=== PATIENT | male | born 1980 | race Caucasian/White ===

== ENCOUNTER 2017-02-14 06:29 | Inpatient (IN) | payer MEDICARE ==
[~2017-02-14] VITALS: Ht 190.5 cm; Wt 100.0 kg
[2017-02-14] VITALS (9 sets, daily range): BP systolic 110–170; BP diastolic 62–102; PULSE 60–94; RESP 16–19; TEMP 97.3–99; O2SAT 93–99
[2017-02-14] MEDS ORDERED: XARE20TA PO (07:03)
[2017-02-14 07:44] LABS: AUTOMATED NEUTROPHIL # 3.3 TH/MM3 (1.8-7.7); BASOPHIL % 0.4 % (0.0-2.0); EOSINOPHIL % 0.7 % (0.0-4.0); HEMATOCRIT 39.8 % (39.0-51.0); HEMO FLAGS DIFF FINAL; LYMPH % 19.2 % (9.0-44.0); MEAN CELL VOLUME 84.5 FL (80.0-100.0); MEAN CORPUSCULAR HEMOGLOBIN 28.9 PG (27.0-34.0); MEAN CORPUSCULAR HGB CONC 34.3 % (32.0-36.0); MONO % 17.3 % (0.0-8.0); NEUT % 62.4 % (16.0-70.0); PLATELET COUNT 102 TH/MM3 (150-450); RED BLOOD COUNT 4.71 MIL/MM3 (4.50-5.90); RED CELL DISTRIBUTION WIDTH 17.1 % (11.6-17.2); WHITE BLOOD COUNT 5.3 TH/MM3 (4.0-11.0)
[2017-02-14] MEDS ORDERED: SODIUM CHLORID 0.9% 500 ML INJ 500 ML IV ONE (08:00)
[2017-02-14] MEDS ORDERED: KETOROLAC TROMETHAMINE 30 MG/ML (IVP) VIAL IV PUSH ONE (08:00)
[2017-02-14 08:01] LABS: ALT (GPT) 46 U/L (12-78); ANION GAP 7 MEQ/L (5-15); AST (GOT) 37 U/L (15-37); BICARBONATE 26.1 MEQ/L (21.0-32.0); BLOOD UREA NITROGEN 10 MG/DL (7-18); CHLORIDE 104 MEQ/L (98-107); GLOMERULAR FILTRATION RATE 80 ML/MIN (>89); POTASSIUM 3.7 MEQ/L (3.5-5.1); SODIUM (NA) 137 MEQ/L (136-145)
[2017-02-14 08:03] LABS: ALKALINE PHOSPHATASE 46 U/L (45-117); TOTAL BILIRUBIN ADULT 1.2 MG/DL (0.2-1.0)
--- NOTE | 2017-02-14 08:17 | RADRPT ---
EXAM DATE/TIME: 02/14/2017 08:01 [facility] COMPARISON: No previous studies available for comparison. INDICATIONS : Shortness of breath. MEDICAL HISTORY : None. SURGICAL HISTORY : None. ENCOUNTER: Initial ACUITY: 1 day PAIN SCORE: 0/10 LOCATION: Bilateral chest FINDINGS: PA and lateral views of the chest demonstrate the lungs to be symmetrically aerated without evidence of mass, infiltrate or effusion. The cardiomediastinal contours are unremarkable. Osseous structure s are intact. CONCLUSION: No acute disease. Stephane Lowry MD on February 14, 2017 at 8:15 Board Certified Radiologist. This report was verified electronically.
--- NOTE | 2017-02-14 09:23 | RADRPT ---
EXAM DATE/TIME: 02/14/2017 08:51 [facility] COMPARISON: No previous studies available for comparison. INDICATIONS : Right leg pain and swelling. MEDICAL HISTORY : Osteomyelitis. Deep venous thrombosis. SURGICAL HISTORY : Multiple right leg surgeries. ENCOUNTER: Initial ACUITY: 1 week PAIN SCORE: 5/10 LOCATION: Right leg. TECHNIQUE: Venous ultrasound of the leg was performed from the inguinal ligament to the proximal calf. Real-arun e, color Doppler and spectral tracing, compression and augmentation techniques were used. FINDINGS: There is nonocclusive thrombus in the right popliteal vein. There is occlusive thrombus in the right posterior tibial vein. The remaining structures of the right lower extremity are patent. CONCLUSION: Nonocclusive thrombus in the right popliteal vein and occlusive thrombus in the right tibial vein. Stephane Lowry MD on February 14, 2017 at 9:20 Board Certified Radiologist. This report was verified electronically.
[2017-02-14] MEDS ORDERED: MORPHINE SULFATE 4 MG/ML INJ IV PUSH ONE (10:15)
[2017-02-14] MEDS ORDERED: ENOXAPARIN SODIUM 100 MG/ML SYRINGE SQ ONE (10:15)
--- NOTE | 2017-02-14 10:31 | PD ---
HPI Chief Complaint: Fever Time Seen by Provider: 07:30 Travel History International Travel<30 days: No Contact w/Intl Traveler<30days: No Traveled to known affect area: No History of Present Illness HPI Patient is a 36 year old male with history of DVT on Xarelto, who comes in complaining of pain and swelling to his right leg. He says it started this morning. He also noted some redness to his right leg. He says someone told him he had a fever, but he has not had a documented elevated temperature. He says he traveled here from [place] a few weeks ago by car. He does complain of some SOB that started this morning. He denies any chest pain. He has history of osteomyelitis after a fracture to the leg several years ago. [facility] Past Medical History Diminished Hearing: No Deep Vein Thrombosis: Yes Tetanus Vaccination: Unknown Influenza Vaccination: No ?: Not Social History Alcohol Use: No Tobacco Use: Yes (1 ppd) Substance Use: No Allergies-Medications (Allergen,Severity, Reaction): Coded Allergies: No Known Allergies (Verified , 02/14/17) Reported Meds & Prescriptions Reported Meds & Active Scripts Active Reported Xarelto (Rivaroxaban) 20 Mg Tab 20 Mg PO DAILY Review of Systems Except as stated in HPI: all other systems reviewed are Neg General / Constitutional: Positive: Fever HENT: No: Headaches Cardiovascular: No: Chest Pain or Discomfort Respiratory: Positive: Shortness of Breath Gastrointestinal: No: Nausea, Vomiting Musculoskeletal: Positive: Edema, Pain Skin: Positive Change in Pigmentation Neurologic: No: Weakness, Dizziness Physical Exam Narrative GENERAL: Awake and alert, in no acute distress. SKIN: Focused skin assessment warm/dry. Mild erythema just above the right ankle. HEAD: Atraumatic. Normocephalic. EYES: Pupils equal and round. No scleral icterus. ENT: Mucous membranes pink and moist. NECK: Trachea midline. No JVD. CARDIOVASCULAR: Regular rate and rhythm. No murmur appreciated. RESPIRATORY: No accessory muscle use. Clear to auscultation. Breath sounds equal bilaterally. MUSCULOSKELETAL: No obvious deformities. No clubbing. No cyanosis. 1+ edema of the right leg. Tenderness to palpation of the right calf. NEUROLOGICAL: Awake and alert. No obvious cranial nerve deficits. Motor grossly within normal limits. Normal speech. PSYCHIATRIC: Appropriate mood and affect; insight and judgment normal. Data Data Last Documented VS Vital Signs Date Time Temp Pulse Resp B/P Pulse Ox O2 Delivery O2 Flow Rate FiO2 02/14/17 11:10 78 18 113/67 96 Room Air 02/14/17 10:40 98.2 Orders Complete Blood Count With Diff (02/14/17 07:04) Comprehensive Metabolic Panel (02/14/17 07:04) Lactic Acid Sepsis Protocol (02/14/17 07:04) Blood Culture (02/14/17 07:04) Iv Access Insert/Monitor (02/14/17 07:04) Oxygen Administration (02/14/17 07:04) Oximetry (02/14/17 07:04) Blood Glucose (02/14/17 07:04) Us Leg Venous Doppler (02/14/17 ) Chest, Pa & Lat (02/14/17 ) Sodium Chlorid 0.9% 500 Ml Inj (Ns 500 M (02/14/17 08:00) Ketorolac Inj (Toradol Inj) (02/14/17 08:00) Act Partial Throm Time (Ptt) (02/14/17 10:03) Prothrombin Time / Inr (Pt) (02/14/17 10:03) Morphine Inj (Morphine Inj) (02/14/17 10:15) Enoxaparin Inj (Lovenox Inj) (02/14/17 10:15) Ct Pulmonary Angiogram (02/14/17 10:16) Iohexol 350 Inj (Omnipaque 350 Inj) (02/14/17 11:03) Admit To Inpatient (02/14/17 ) Vital Signs (Adult) Q4H (02/14/17 12:24) Activity Oob With Assistance (02/14/17 12:24) Diet Regular Basic (02/14/17 Lunch) Sodium Chloride 0.9% Flush (Ns Flush) (02/14/17 12:30) Sodium Chloride 0.9% Flush (Ns Flush) (02/14/17 21:00) Acetaminophen (Tylenol) (02/14/17 12:30) Ondansetron Inj (Zofran Inj) (02/14/17 12:30) Docusate Sodium (Colace) (02/14/17 12:30) Magnesium Hydroxide Liq (Milk Of Magnesi (02/14/17 12:30) Basic Metabolic Panel (Bmp) (02/15/17 06:00) Comprehensive Metabolic Panel (02/15/17 06:00) Resp Oxygen [place] C Titrat 1-4 L (02/14/17 ) Case Management Consult (02/14/17 12:24) Zolpidem (Ambien) (02/14/17 12:30) Inpatient Certification (02/14/17 ) Consult Medical Oncology (02/14/17 ) Metoprolol Tartrate (Lopressor) (02/14/17 12:30) Acetamin-Hydrocod 325-5 Mg (Amboy 5-325 (02/14/17 12:30) Enoxaparin Inj (Lovenox Inj) (02/14/17 21:00) Pill Splitter (Pill Splitter) (02/14/17 12:45) Resp Incentive Spirometry (02/14/17 ) Admit Order (Ed Use Only) (02/14/17 ) Labs Laboratory Tests Test 02/14/17 02/14/17 07:20 10:09 White Blood Count 5.3 TH/MM3 Red Blood Count 4.71 MIL/MM3 Hemoglobin 13.6 GM/DL Hematocrit 39.8 % Mean Corpuscular Volume 84.5 FL Mean Corpuscular Hemoglobin 28.9 PG Mean Corpuscular Hemoglobin 34.3 % Concent Red Cell Distribution Width 17.1 % Platelet Count 102 TH/MM3 Mean Platelet Volume 9.2 FL Neutrophils (%) (Auto) 62.4 % Lymphocytes (%) (Auto) 19.2 % Monocytes (%) (Auto) 17.3 % Eosinophils (%) (Auto) 0.7 % Basophils (%) (Auto) 0.4 % Neutrophils # (Auto) 3.3 TH/MM3 Lymphocytes # (Auto) 1.0 TH/MM3 Monocytes # (Auto) 0.9 TH/MM3 Eosinophils # (Auto) 0.0 TH/MM3 Basophils # (Auto) 0.0 TH/MM3 CBC Comment DIFF FINAL Differential Comment Sodium Level 137 MEQ/L Potassium Level 3.7 MEQ/L Chloride Level 104 MEQ/L Carbon Dioxide Level 26.1 MEQ/L Anion Gap 7 MEQ/L Blood Urea Nitrogen 10 MG/DL Creatinine 1.04 MG/DL Estimat Glomerular Filtration 80 ML/MIN Rate Random Glucose 106 MG/DL Lactic Acid Level 0.8 mmol/L Calcium Level 9.0 MG/DL Total Bilirubin 1.2 MG/DL Aspartate Amino Transf 37 U/L (AST/SGOT) Alanine Aminotransferase 46 U/L (ALT/SGPT) Alkaline Phosphatase 46 U/L Total Protein 7.9 GM/DL Albumin 4.0 GM/DL Prothrombin Time 12.6 SEC Prothromb Time International 1.1 RATIO Ratio Activated Partial 30.7 SEC Thromboplast Time MDM Medical Decision Making Medical Screen Exam Complete: Yes Emergency Medical Condition: Yes Medical Record Reviewed: Yes Differential Diagnosis DVT vs cellulitis vs muscle strain Narrative Course Patient is a 28-year-old male who comes in complaining of right leg pain and swelling. There is edema and slight redness to the right lower extremity on exam. IV established, labs sent. Labs show no acute abnormalities. Doppler ultrasound is positive for DVT in the right leg. CTA performed to rule out PE, shows no acute abnormalities. Patient given Lovenox. Admitted due to failed outpatient therapy. Diagnosis Primary Impression: DVT (deep venous thrombosis) Qualified Code: I82.4Y1 - Acute deep vein thrombosis (DVT) of proximal vein of right lower extremity Admitting Information Admitting Physician Requests: Admit Condition: Stable Daxa Fernandez MD Feb 14, 2017 10:30
[2017-02-14 10:32] LABS: APTT (PATIENT) 30.7 SEC (24.3-30.1); INTERNATIONAL NORMALIZED RATIO 1.1 RATIO; PROTHROMBIN TIME - PATIENT 12.6 SEC (9.8-11.6)
[2017-02-14] MEDS ORDERED: IOHEXOL 350 MG/ML 10 ML VIAL (for RAD DIAG) IV ONE (11:03)
--- NOTE | 2017-02-14 11:24 | RADRPT ---
EXAM DATE/TIME: 02/14/2017 10:38 [facility] COMPARISON: No previous studies available for comparison. INDICATIONS : Right lower leg pain and shortness of breath today. IV CONTRAST: 70 cc Omnipaque 350 (iohexol) IV RADIATION DOSE: 13.71 CTDIvol (mGy) MEDICAL HISTORY : deep vein thrombosis SURGICAL HISTORY : None. ENCOUNTER: Initial ACUITY: 1 day PAIN SCALE: 0/10 LOCATION: Bilateral chest TECHNIQUE: Volumetric scanning of the chest was performed using a pulmonary embolism protocol MIP images were re constructed. Using automated exposure control and adjustment of the mA and/or kV according to patien t size, radiation dose was kept as low as reasonably achievable to obtain optimal diagnostic quality images. FINDINGS: PULMONARY ARTERIES: No filling defects are seen in the pulmonary arteries through the segmental level. LUNGS: There is increased density at the posterior lower lobes bilaterally being more prominent on the right area PLEURAE: There is no pleural thickening or pleural effusion. MEDIASTINUM: There is good visualization of the great vessels of the middle mediastinum. No evidence of mediastin al or hilar adenopathy/mass. Coronary artery calcifications appear present. MUSCULOSKELETAL: Within normal limits for patient age. MISCELLANEOUS: The visualized upper abdominal organs demonstrate no acute abnormality. CONCLUSION: 1. No pulmonary embolus. 2. Mild atelectasis or consolidation at the posterior lower lobes bilaterally being more prominent on the right. 3. Coronary artery calcifications are present. Stephane Lowry MD on February 14, 2017 at 11:21 Board Certified Radiologist. This report was verified electronically.
[2017-02-14] MEDS ORDERED: ZOLPIDEM TARTRATE 5 MG TAB PO PRN (12:30)
[2017-02-14] MEDS ORDERED: ONDANSETRON HCL 4 MG/2 ML VIAL IVP PRN (12:30)
[2017-02-14] MEDS ORDERED: ACETAMINOPHEN/HYDROcodone 325 MG/5 MG TAB PO PRN (12:30)
[2017-02-14] MEDS ORDERED: ACETAMINOPHEN 325 MG TAB PO PRN (12:30)
[2017-02-14] MEDS ORDERED: METOPROLOL TARTRATE 25 MG TAB PO PRN (12:30)
[2017-02-14] MEDS ORDERED: MAGNESIUM HYDROXIDE SUSP 30 ML CUP PO PRN (12:30)
[2017-02-14] MEDS ORDERED: SODIUM CHLORIDE 0.9% FLUSH 10 ML FLUSH IV FLUSH PRN (12:30)
[2017-02-14] MEDS: DOCUSATE SODIUM 100 MG CAP PO SCH (12:30)
[2017-02-14] MEDS ORDERED: PILL SPLITTER OTHER PRN (12:45)
[2017-02-14] MEDS: RESP: ALBUTEROL 2.5 MG/IPRATROPIUM 0.5 MG NEB (SCH) NEB (14:00)
[2017-02-14] MEDS ORDERED: RESP: ALBUTEROL 2.5 MG/IPRATROPIUM 0.5 MG NEB (PRN) NEB (14:00)
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
[2017-02-14] MEDS ORDERED: LEVOFLOXACIN 750 MG PREMIX INJ 150 ML IV SCH (15:00)
[2017-02-14] MEDS: NICOTINE 14 MG/24 HR PATCH T-DERMAL SCH (15:00)
[2017-02-14] MEDS: predniSONE 20 MG TAB PO SCH (15:02)
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
[2017-02-14] MEDS ORDERED: WARFARIN SOD 4 MG TAB PO SCH (16:00)
[2017-02-14] MEDS ORDERED: HYDROmorphone HCL PF 1 MG/ML VIAL IV ONE (19:00)
[2017-02-14] MEDS: ENOXAPARIN SODIUM 100 MG/ML SYRINGE SQ SCH (20:52)
[2017-02-14] MEDS: SODIUM CHLORIDE 0.9% FLUSH 10 ML FLUSH IV FLUSH SCH (20:53)
[2017-02-14] MEDS ORDERED: ZANA4CAP PO (22:56)
[2017-02-14] MEDS ORDERED: NEUR800T PO (22:56)
[2017-02-14] MEDS ORDERED: OXYC15TA PO (22:56)
[2017-02-14] MEDS ORDERED: BUSP15TA PO (22:56)
[2017-02-15] VITALS: BP 116/73; PULSE 82; RESP 17; TEMP 97.3; O2SAT 95
[2017-02-15] MEDS: DOCUSATE SODIUM 100 MG CAP PO SCH ×2 (00:30→10:39)
[2017-02-15 04:00] VITALS: BP 126/75; PULSE 88; RESP 18; TEMP 97.6; O2SAT 99
--- NOTE | 2017-02-15 07:13 | HHI.PR ---
Subjective Remarks Feels much better. No more sweating. no cough, no sob. He complaints of leg pain and he is also having chronic back pain. No n/v/d/c. Objective Vitals Vital Signs Date Time Temp Pulse Resp B/P Pulse Ox O2 Delivery O2 Flow Rate FiO2 02/15/17 06:24 18 02/15/17 05:24 18 02/15/17 00:00 97.3 82 17 116/73 95 02/14/17 20:00 98.2 86 17 119/69 95 02/14/17 19:30 18 02/14/17 16:00 97.3 92 16 110/72 99 02/14/17 15:08 98.0 60 17 119/64 96 Room Air 02/14/17 14:46 16 02/14/17 13:31 71 17 117/62 96 Room Air 02/14/17 11:10 78 18 113/67 96 Room Air 02/14/17 11:10 17 02/14/17 10:40 98.2 88 19 141/102 95 Room Air 02/14/17 09:23 18 02/14/17 08:30 98.6 83 18 170/91 96 Room Air I/O 02/14/17 02/14/17 02/14/17 02/15/17 02/15/17 02/15/17 07:00 15:00 23:00 07:00 15:00 23:00 Intake Total 960 ml Output Total 700 ml Balance 260 ml Intake Oral 960 ml Output Urine Total 700 ml # Voids 0 # Bowel Movements 0 Result Diagram: 02/14/17 0720 02/14/17 [address] Angiography 02/14/17 1016 Signed Impressions: Service Date/Time: Tuesday, February 14, 2017 10:38 - CONCLUSION: 1. No pulmonary embolus. 2. Mild atelectasis or consolidation at the posterior lower lobes bilaterally being more prominent on the right. 3. Coronary artery calcifications are present. Stephane Lowry MD Lower Extremity Ultrasound 02/14/17 0000 Signed Impressions: Service Date/Time: Tuesday, February 14, 2017 08:51 - CONCLUSION: Nonocclusive thrombus in the right popliteal vein and occlusive thrombus in the right tibial vein. Stephane Lowry MD Chest X-Ray 02/14/17 0000 Signed Impressions: Service Date/Time: Tuesday, February 14, 2017 08:01 - CONCLUSION: No acute disease. Stephane Lowry MD Objective Remarks GENERAL: Well-developed well-nourished. In no acute distress. SKIN: Warm and dry. Erythema around the right ankle. HEENT: Normocephalic. Pupils equal and round. Mucous membranes pink and moist. CARDIOVASCULAR: Regular rate and rhythm. No murmur appreciated. RESPIRATORY: No accessory muscle use. Bronchial breath sounds in bilateral lung bases. Bibasilar crackles. No wheezing. GASTROINTESTINAL: Abdomen soft, non-tender, nondistended. Bowel sounds x4. MUSCULOSKELETAL: Right lower extremity with swelling, edema, erythema, tender to touch, previous surgical deformities over the right tibia. Left lower extremity unremarkable. NEUROLOGICAL: Awake and alert. No focal neurological deficits. Moves upper and lower extremities spontaneously. Normal speech. PSYCHIATRIC: Appropriate mood and affect; insight and judgment normal. 36-year-old male with a past medical history of posttraumatic DVT who presented with right leg pain and swelling as well as shortness of breath Right lower extremity DVT, failed management with Xarelto: Reviewed RLE doppler , shows nonocclusive thrombus in the right popliteal vein and occlusive thrombus in the right tibial vein. Had been taking Xarelto as outpatient, previously on Coumadin. Patient did take a long car trip 4-5 days prior to admission. He does continue to smoke. Discussed with hematology, stop Xarelto , continue Lovenox bridge and transition back to Coumadin. Pain control with oral [place]. Community acquired pneumonia: Pulmonary angiogram reviewed, showed no PE, however it did show atelectasis and consolidation in the posterior lower lung bases. Start IV Levaquin or prednisone daily.. Scheduled and as needed nebs. O2 as needed. Provide tobacco cessation education. Nicotine patch. Incentive spirometry. Discussed Condition With Patient, nurse, family at bedside A/P Assessment and Plan 36-year-old male with a past medical history of posttraumatic DVT who presented with right leg pain and swelling as well as shortness of breath Right lower extremity DVT, failed management with Xarelto: Reviewed RLE doppler , shows nonocclusive thrombus in the right popliteal vein and occlusive thrombus in the right tibial vein. Had been taking Xarelto as outpatient, previously on Coumadin. Patient did take a long car trip 4-5 days prior to admission. He does continue to smoke. Discussed with hematology, stop Xarelto , continue Lovenox bridge and transition back to Coumadin. Pain control with oral [place]. Discussed with Dr Nick hem/onc [place] to DC patient will have lovenox and coumadin 7.5 mg po daily until INR is back to goal 2-3. Patient to follow up in the clinic to check INR per Dr Nick. Discussed with the patient and he feels comfortable with the plan. Community acquired pneumonia: Pulmonary angiogram reviewed, showed no PE, however it did show atelectasis and consolidation in the posterior lower lung bases. Patient is much better today. No cough , diaphoresis. DC IV Levaquin and prednisone daily.. Scheduled and as needed nebs. O2 as needed. Provide tobacco cessation education. Nicotine patch. Incentive spirometry. Chronic back pain: He also complaints of pain in his leg. Patient says is on oxycodone and is following with pain specialit as OP. Says he did run out of pain meds. Will give oxycodone at discharge 5 mg as need (10 pills). Patient to follow with pain management Discussed Condition With Patient, nurse, family at bedside Improved patient to have lovenox until INR at therapeutic goal of 2-3. Will cont coumadin 7.5 mg daily , to follow up as OP with hem/onc service who will manage INR Rach Bernard MD Feb 15, 2017 07:13
[2017-02-15 08:00] VITALS: BP 138/89; PULSE 74; RESP 16; TEMP 97.4; O2SAT 96
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
[2017-02-15] MEDS ORDERED: WARF-21 PO (08:05)
[2017-02-15] MEDS ORDERED: ENOX100P SQ (08:05)
[2017-02-15] MEDS ORDERED: REMOVE OLD PATCH T-DERMAL SCH (09:00)
[2017-02-15] MEDS: RESP: ALBUTEROL 2.5 MG/IPRATROPIUM 0.5 MG NEB (SCH) NEB (09:14)
[2017-02-15 09:33] LABS: INTERNATIONAL NORMALIZED RATIO 1.1 RATIO; PROTHROMBIN TIME - PATIENT 12.6 SEC (9.8-11.6)
[2017-02-15] MEDS ORDERED: OXYC1CAP PO (09:43)
[2017-02-15] MEDS: NICOTINE 14 MG/24 HR PATCH T-DERMAL SCH (09:53)
[2017-02-15] MEDS: ENOXAPARIN SODIUM 100 MG/ML SYRINGE SQ SCH (09:54)
[2017-02-15] MEDS: predniSONE 20 MG TAB PO SCH (09:54)
[2017-02-15] MEDS: SODIUM CHLORIDE 0.9% FLUSH 10 ML FLUSH IV FLUSH SCH (09:54)
[2017-02-15 10:16] LABS: ALKALINE PHOSPHATASE 44 U/L (45-117); ALT (GPT) 44 U/L (12-78); ANION GAP 7 MEQ/L (5-15); AST (GOT) 29 U/L (15-37); BICARBONATE 27.9 MEQ/L (21.0-32.0); BLOOD UREA NITROGEN 11 MG/DL (7-18); CHLORIDE 104 MEQ/L (98-107); GLOMERULAR FILTRATION RATE 102 ML/MIN (>89); POTASSIUM 3.5 MEQ/L (3.5-5.1); SODIUM (NA) 139 MEQ/L (136-145); TOTAL BILIRUBIN ADULT 0.6 MG/DL (0.2-1.0)
== END 2017-02-15 12:46 | disposition home or self-care (01) | DRG 299 ==
LOC: NEPE 06:29 → NEDA 12:39 → HOCB 15:43
PROVIDERS: ADMIT Hospitalist; ATTEND Hospitalist
DX: I82.401 Acute embolism and thrombosis of unspecified deep veins of right lower extremity (principal); J18.9 Pneumonia, unspecified organism; F17.210 Nicotine dependence, cigarettes, uncomplicated; Z79.02 Long term (current) use of antithrombotics/antiplatelets; G89.29 Other chronic pain; M54.9 Dorsalgia, unspecified; Z86.718 Personal history of other venous thrombosis and embolism
CPT/HCPCS: 71020; 71275; 80053; 83605; 85025; 85610; 85730; 87040; 93971; 94150; 96361; 96372; 96374; 96375; J1170; J1650; J1885; J1956; J2270; J7040; J7512; Q9967

== ENCOUNTER 2017-02-25 02:09 | Observation (INO) | payer MEDICARE ==
[~2017-02-25] VITALS: Ht 190.5 cm; Wt 105.0 kg
[~2017-02-25 02:09] MED LIST: BUSP15TA PO; ENOX100P SQ; NEUR800T PO; OXYC15TA PO; OXYC1CAP PO; WARF-21 PO; ZANA4CAP PO
[2017-02-25 02:12] VITALS: BP 126/81; PULSE 120; RESP 22; O2SAT 93
[2017-02-25] MEDS ORDERED: SODIUM CHLOR 0.9% 1000 ML INJ 1,000 ML IV SCH (02:50)
[2017-02-25] MEDS ORDERED: SODIUM CHLORIDE 0.9% FLUSH 10 ML FLUSH IV FLUSH PRN ×2 (03:00→06:15)
[2017-02-25] MEDS ORDERED: MORPHINE SULFATE 4 MG/ML INJ IV PUSH ONE ×2 (03:00→06:15)
[2017-02-25 03:16] LABS: AUTOMATED NEUTROPHIL # 3.2 TH/MM3 (1.8-7.7); BASOPHIL % 0.4 % (0.0-2.0); EOSINOPHIL % 0.7 % (0.0-4.0); HEMATOCRIT 39.4 % (39.0-51.0); HEMO FLAGS DIFF FINAL; LYMPH % 19.7 % (9.0-44.0); MEAN CELL VOLUME 84.5 FL (80.0-100.0); MEAN CORPUSCULAR HEMOGLOBIN 28.9 PG (27.0-34.0); MEAN CORPUSCULAR HGB CONC 34.3 % (32.0-36.0); MONO % 14.6 % (0.0-8.0); NEUT % 64.6 % (16.0-70.0); PLATELET COUNT 165 TH/MM3 (150-450); RED BLOOD COUNT 4.67 MIL/MM3 (4.50-5.90); RED CELL DISTRIBUTION WIDTH 16.1 % (11.6-17.2); WHITE BLOOD COUNT 4.9 TH/MM3 (4.0-11.0)
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
[2017-02-25 03:31] LABS: APTT (PATIENT) 28.5 SEC (24.3-30.1); INTERNATIONAL NORMALIZED RATIO 1.2 RATIO; PROTHROMBIN TIME - PATIENT 13.1 SEC (9.8-11.6)
[2017-02-25 03:42] LABS: BICARBONATE 28.3 MEQ/L (21.0-32.0); POTASSIUM 3.9 MEQ/L (3.5-5.1)
[2017-02-25 04:00] VITALS: BP 146/88; PULSE 84; RESP 16
[2017-02-25] MEDS ORDERED: ONDANSETRON HCL 4 MG/2 ML VIAL IV PUSH ONE (04:45)
[2017-02-25] MEDS ORDERED: KETOROLAC TROMETHAMINE 30 MG/ML (IVP) VIAL IV PUSH ONE (04:45)
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
[2017-02-25] MEDS ORDERED: ENOXAPARIN SODIUM 100 MG/ML SYRINGE SQ ONE (06:15)
[2017-02-25] MEDS ORDERED: NALOXONE HCL 0.4 MG/ML AMP IV PRN (06:15)
[2017-02-25 07:15] VITALS: BP 102/74; PULSE 100; RESP 16; TEMP 99.6; O2SAT 95
--- NOTE | 2017-02-25 08:21 | HHI.HP ---
[facility] Physician No Primary Care Physician Admission Diagnosis DVT Diagnoses: Chief Complaint: right leg swelling and pain Travel History International Travel<30 Days: No Contact w/Intl Traveler <30 Da: No Traveled to Known Affected Are: No History of Present Illness 36 y/o male with a history of DVT's presented to the ED with complaints of right leg swelling and pain. He states he woke up yesterday and his right thigh was swollen and very painful 08/03, and it extended down behind his knee. Fever , chills, nausea and vomiting that started yesterday. Also complains of blood when he has a BM, about a teaspoon and not with with every BM, also having diarrhea for the past 2 days, 5-6 times a day, liquid in form, with rectal burning. Denies sob, chest pain, hematuria or dysuria. 3 weeks ago he moved from [place] where he was being treated for a DVT, 2-3 days prior to coming in last admission on 02/14/17 he ran out of his Xerolto and was unable to follow up. He was then discharged on Lovenox and Coumadin and states he finished his RX and was not able to follow up with a PCP. He states he does not know where to follow up because he is new to the area. Review of Systems Constitutional: COMPLAINS OF: Fever, Chills Respiratory: DENIES: Sputum production, Shortness of breath Cardiovascular: COMPLAINS OF: Lower Extremity Edema, DENIES: Chest pain Gastrointestinal: COMPLAINS OF: Bloody stools, Diarrhea, Nausea, Vomiting, DENIES: Constipation Genitourinary: DENIES: Hematuria, Dysuria Musculoskeletal: COMPLAINS OF: Back pain (chronic), DENIES: Neck pain Integumentary: COMPLAINS OF: Rash Neurologic: DENIES: Headache Past Family Social History Past Medical History right leg trauma with subsequent fracture repair DVT osteomyelitis Past Surgical History Back fusion nose reconstruction Reported Medications Reported Meds & Active Scripts Active Warfarin 7.5 Mg Tab 7.5 Mg PO DAILY Reported Oxycodone (Oxycodone HCl) 15 Mg Tab 15 Mg PO Q6H PRN Neurontin (Gabapentin) 800 Mg Tab 800 Mg PO QID Zanaflex (Tizanidine HCl) 4 Mg Cap 4 Mg PO QID Buspirone (Buspirone HCl) 15 Mg Tab 15 Mg PO TID PRN Allergies: Coded Allergies: No Known Allergies (Verified , 02/25/17) Active Ordered Medications Current Medications Medications (Trade) Dose Ordered Sig/Amrit Route Start Time Stop Time Status Last Admin (NS Flush) 2 ml UNSCH PRN IV FLUSH 02/25/17 06:15 (NS Flush) 2 ml BID IV FLUSH 02/25/17 09:00 (Narcan Inj) 0.4 mg UNSCH PRN IV 02/25/17 06:15 (Lovenox Inj) 100 mg Q12H SQ 02/25/17 18:00 (Coumadin) 7.5 mg DAILY@16 PO 02/25/17 16:00 (Roxicodone) 15 mg Q6H PRN PO 02/25/17 06:30 (Coumadin Booklet) 1 ONCE ONCE .XX 02/25/17 16:00 02/25/17 16:01 Family History No family history of clotting diseases. Denies any diabetes, hypertension, stroke in the family. Social History Tobacco use: 1 PPD for 20 years Alcohol use: denies Illicit drug use: Denies Physical Exam Vital Signs Vital Signs Date Time Temp Pulse Resp B/P Pulse Ox O2 Delivery O2 Flow Rate FiO2 02/25/17 07:15 99.6 100 16 102/74 95 02/25/17 04:23 16 02/25/17 04:00 84 16 146/88 02/25/17 02:12 120 22 126/81 93 Physical Exam GENERAL: This is a well-nourished, well-developed patient, in no apparent distress. AAOx3 SKIN: No rashes, ecchymoses or lesions. Cool and dry. Multiple old scars noted on right leg. HEAD: Atraumatic. Normocephalic. No temporal or scalp tenderness. EYES: Pupils equal round and reactive. Extraocular motions intact. ENT: Nose without bleeding, purulent drainage or septal hematoma. . Airway patent. NECK: Trachea midline. No JVD or lymphadenopathy. CARDIOVASCULAR: Regular rate and rhythm without murmurs, gallops, or rubs. Thready pedal pulses RESPIRATORY: Clear to auscultation. Breath sounds equal bilaterally. No wheezes , rales, or rhonchi. GASTROINTESTINAL: Abdomen soft, lower abdominal tenderness, nondistended. No guarding. MUSCULOSKELETAL: Right leg edematous and painful. Right calf tenderness. NEUROLOGICAL: Awake and alert.Motor and sensory grossly within normal limits. Normal speech. Laboratory Laboratory Tests Test 02/25/17 02:45 White Blood Count 4.9 Red Blood Count 4.67 Hemoglobin 13.5 Hematocrit 39.4 Mean Corpuscular Volume 84.5 Mean Corpuscular Hemoglobin 28.9 Mean Corpuscular Hemoglobin 34.3 Concent Red Cell Distribution Width 16.1 Platelet Count 165 Mean Platelet Volume 9.1 Neutrophils (%) (Auto) 64.6 Lymphocytes (%) (Auto) 19.7 Monocytes (%) (Auto) 14.6 Eosinophils (%) (Auto) 0.7 Basophils (%) (Auto) 0.4 Neutrophils # (Auto) 3.2 Lymphocytes # (Auto) 1.0 Monocytes # (Auto) 0.7 Eosinophils # (Auto) 0.0 Basophils # (Auto) 0.0 CBC Comment DIFF FINAL Differential Comment Prothrombin Time 13.1 Prothromb Time International 1.2 Ratio Activated Partial 28.5 Thromboplast Time Sodium Level 134 Potassium Level 3.9 Chloride Level 98 Carbon Dioxide Level 28.3 Anion Gap 8 Blood Urea Nitrogen 10 Creatinine 1.13 Estimat Glomerular Filtration 73 Rate Random Glucose 105 Calcium Level 9.0 Result Diagram: 02/25/17 0245 02/25/17 0245 Imaging Last Impressions Lower Extremity Ultrasound 02/25/17 0000 Signed Impressions: Service Date/Time: February 04:06 - CONCLUSION: 1. Deep venous thrombosis throughout the femoral vein nonocclusive in nature Uriel Pena MD Assessment and Plan Problem List: (1) DVT (deep venous thrombosis) ICD Code: I82.409 Status: Acute (2) Hematochezia ICD Code: K92.1 Status: Acute Assessment and Plan 36 y/o male with a history of DVT's presented to the ED with complaints of right leg swelling and pain. He states he woke up yesterday and his right thigh was swollen and very painful 10/10, and it extended down behind his knee. DVT, right Images: Doppler Us shows Deep venous thrombosis throughout the femoral vein nonocclusive in nature -Restart Coumadin and bridge with Lovenox, case management to help with outside assistance Hematochezia, patient states he sees blood in his stool, patient denies hemorrhoids Labs: Hgb 13.5 -Serial H&H -Hemoccult ordered -Monitor for bleeding, will consult GI if needed DVT prophylaxis: Coumadin and Lovenox Written by SINCERE Arellano acting as scribe for [Steven] on 02/25/17 at 08: 13. This note was transcribed by scribe [SINCERE Arellano]. I, Dr. Dangelo Harris personally performed the history, physical exam, and medical decision making; and confirmed the accuracy of the information in the transcribed note. Authenticated by Dr. Dangelo Harris on 02/26/17 at 08:19. 13:00 additional information. Case management was able to set up appointment with Dr. Karimi for tomorrow at 11am -Instructed patient on importance of taking medications and continue follow up -Medications will be filled by outpatient pharmacy. -Hgb stable, patient has not had any diarrhea, instructed to followup outpatient and return if bleeding worsens 16:00 meds had been filled at pharmacy and were being brought to ED, but patient left AMA before receiving them. Patient decided to leave AMA because his ride did not want to wait anymore, and he declined bus passes. He stated he will follow up with his appointment and get the medications, he did not want to wait for the medication that was coming from outpatient pharmacy. Discharge patient to home Condition on discharge: Improved Regular Diet as tolerated Ad Sharon activity Rx written: Lovenox 100mg daily, Coumadin 7.5 daily Follow-up with primary care physician tomorrow 11am dr. karimi Discussed Condition With Patient , nurse, case ager Problem Qualifiers (1) DVT (deep venous thrombosis): Qualified Code: I82.411 - Deep vein thrombosis (DVT) of femoral vein of right lower extremity, unspecified chronicity Monserrat Bonilla February 25, 2017 08:20 Dangelo Harris MD February 26, 2017 08:19
[2017-02-25] MEDS ORDERED: SODIUM CHLORIDE 0.9% FLUSH 10 ML FLUSH IV FLUSH SCH (09:00)
[2017-02-25 11:10] VITALS: BP 94/66; PULSE 98; RESP 14; TEMP 98.2; O2SAT 97
[2017-02-25 11:45] LABS: HEMATOCRIT 36.7 % (39.0-51.0); REVIEW FLAG FINAL
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
[2017-02-25] MEDS ORDERED: COUM7.5T PO (12:59)
[2017-02-25] MEDS ORDERED: ENOX100P SQ (12:59)
[2017-02-25] MEDS ORDERED: WARFARIN SOD 7.5 MG TAB PO SCH (16:00)
[2017-02-25] MEDS ORDERED: ENOXAPARIN SODIUM 100 MG/ML SYRINGE SQ SCH (18:00)
== END 2017-02-25 16:49 | disposition left against medical advice (07) ==
LOC: NEPC 02:09 → NEDA 06:17 → NEPGCP 07:05
PROVIDERS: ADMIT Internal Medicine; ATTEND Internal Medicine
DX: I82.411 Acute embolism and thrombosis of right femoral vein (principal); K92.1 Melena; F17.200 Nicotine dependence, unspecified, uncomplicated; Z79.01 Long term (current) use of anticoagulants
CPT/HCPCS: 80048; 85014; 85018; 85025; 85610; 85730; 93971; 96361; 96374; 96375; 99285; G0378; J1650; J2270; J2405; J7030